=== PATIENT | female | born 2000 | race Caucasian/White ===

== ENCOUNTER 2022-03-29 17:23 | Emergency (ER) | payer OTHER ==
[~2022-03-29] VITALS: Ht 165.1 cm; Wt 68.2 kg
[2022-03-29 18:08] LABS: BASOPHILS % (AUTO) 0.2 % (0.0-2.0); EOSINOPHILS % (AUTO) 0.5 % (1.0-6.0); HEMATOCRIT 30.1 % (36-46); HEMOGLOBIN 10.1 g/dL (12.0-16.0); LYMPHOCYTES # (AUTO) 1.5 K/uL (1.0-4.8); LYMPHOCYTES % (AUTO) 20.9 % (22.0-44.0); MEAN CORPUSCULAR HEMOGLOBIN 28.6 pg (26.0-34.0); MEAN CORPUSCULAR HGB CONC 33.6 G/dL (31.0-37.0); MEAN CORPUSCULAR VOLUME 85 fL (80-100); MONOCYTES # (AUTO) 0.5 K/uL (0.1-1.0); MONOCYTES % (AUTO) 6.2 % (2.0-9.0); NEUTROPHILS # (AUTO) 5.3 K/uL (1.8-7.7); NEUTROPHILS % (AUTO) 72.2 % (40.0-70.0); PLATELET COUNT (AUTO) 264 K/uL (150-450); RED BLOOD CELL COUNT(AUTO) 3.53 MIL/uL (4.00-5.20); RED CELL DISTRIBUTION WIDTH 15.2 % (11.5-14.5)
[2022-03-29 18:18] LABS: ANION GAP 14 mmol/L (8-16); CALCIUM, TOTAL 8.4 mg/dL (8.8-10.5); CARBON DIOXIDE 21 mmol/L (22-29); CHLORIDE 102 mmol/L (98-107); CREATININE 0.47 mg/dL (0.60-1.30); POTASSIUM 3.3 mmol/L (3.5-5.1); SODIUM SERUM 137 mmol/L (136-145); UREA NITROGEN, BLOOD 7 mg/dL (7-18)
[2022-03-29 18:25] LABS: COVID AG,FIA SOURCE NASAL SWAB
[2022-03-29 18:46] LABS: ALANINE AMINOTRANSFERASE 40 U/L (12-78); ALBUMIN 2.6 g/dL (3.4-5.0); ALKALINE PHOSPHATASE 100 U/L (46-116); ASPARTATE AMINOTRANSFERASE 35 U/L (15-37); BILIRUBIN,TOTAL 0.3 mg/dL (0.1-1.0); GLUCOSE,RANDOM 102 mg/dL (70-110); HCG,QUANTITATIVE 9854 mIU/mL (0-6); TOTAL PROTEIN, SERUM 6.6 g/dL (6.4-8.2)
[2022-03-29 18:48] LABS: GLOMERULAR FILTR. RATE CALC > 60 mL/min (>60)
[2022-03-29 19:41] LABS: APPEARANCE,URINE HAZY (CLEAR); BILIRUBIN,URINE NEGATIVE (NEGATIVE); GLUCOSE, URINE (UA) TRACE mg/dL (NEGATIVE); KETONES,URINE NEGATIVE (NEGATIVE); LEUKOCYTE ESTERASE ,URINE TRACE (NEGATIVE); NITRATE,URINE NEGATIVE (NEGATIVE); OCCULT BLOOD,URINE NEGATIVE (NEGATIVE); PROTEIN,URINE NEGATIVE (NEGATIVE); UROBILINOGEN,URINE <=1.0 mg/dL (<=1.0)
[2022-03-29 19:54] LABS: BACTERIA,URINE Moderate /HPF (None Seen); RBC,URINE None Seen /HPF (0-2)
[2022-03-29 20:00] VITALS: BP 107/62
== END 2022-03-29 20:15 | disposition left against medical advice (07) ==
LOC: EMS 17:27
DX: O26.892 Other specified pregnancy related conditions, second trimester (principal); R10.30 Lower abdominal pain, unspecified; M54.50 Low back pain, unspecified; Z3A.24 24 weeks gestation of pregnancy; Z20.822 Contact with and (suspected) exposure to COVID-19
CPT/HCPCS: 76801; 76817; 80053; 81001; 84702; 85025; 86901; 87086; 99284